=== PATIENT | female | born 1990 | race African-American/Black ===

== ENCOUNTER 2017-03-02 16:23 | Emergency (ER) | payer OTHER ==
--- NOTE | ~2017-03-02 | CT2 ---
[facility] A Service of [facility] RADIOLOGY TEXT RESULTS PATIENT: BROOKE MCGINNIS LOCATION: [facility] : 86 UNIT #: [id number] AGE: [address]: Jose Fernández MD SEX: F ORDER DR: [id number] [facility] [address] [place], [place] [address] [id number] E MR#: [id number] #: [id number] NAME: BROOKE MCGINNIS : 1990 SEX: F STUDY DATE/TIME: 03/02/2017 17:15 UNIT: [facility] ROOM: STUDY DESCRIPTION: CT Abd and Pelv W Cont Attending Physician: Yovany Fernández M.D. Ordering Physician: Selvin Price M.D. Primary Care Physician: Sundar Duran Aprn MEDICAL IMAGING REPORT This report is preliminary unless electronic signature is present EXAM CT abdomen and pelvis with contrast INDICATIONS Middle abdomen pain starting 6 weeks ago which comes and goes and is getting worse. COMPARISON 01/05/2016. TECHNIQUE Patient was given 100 mL of Isovue 370. Axial 5 mm images were obtained through the abdomen and pelvis with IV and oral contrast. This CT exam was performed with one or more of the following radiation dose reduction techniques: automatic control, adjustment of mA and/or kV according to patient size, and iterative reconstruction. FINDINGS There is a small cyst in the left lobe of the liver and another one in the right lobe of the liver, both measuring less than a cm in diameter. Liver is otherwise normal. The spleen, pancreas, adrenal glands and kidneys are normal. The aorta is normal in size. The appendix is normal. The bowel is normal. The uterus and adnexal regions are normal. The patient still has a defect about 2 cm above the umbilicus within the abdominal wall fascia but there is no inflammation associated with that area. There is still some fat herniating through. IMPRESSION 1. There is a small less than 1 cm opening through the abdominal fascia about 1 to 2 cm above the umbilicus. There is some fat herniating through this region but there is no evidence of incarceration or inflammation. On that study 01/05/2016 there was a smaller area of fat herniating through it that was inflamed. [facility]. [facility] A Service of [facility] & [facility] RADIOLOGY TEXT RESULTS PATIENT: BROOKE MCGINNIS [id number] [birth year] UNIT #: [id number] AGE: [address]: Jose Fernández MD SEX: F ORDER DR: 2. Small hepatic cyst. 3. Otherwise normal. Dictated by... Ethan Gillis M.D. THIS IS AN ELECTRONICALLY VERIFIED REPORT Ethan Gillis M.D. at 03/04/2017 7:13 AM GAIL/charley TD: 03/02/2017 21:49 JOB #: [id number] MEDICAL IMAGING REPORT Page 1 of 1 COPY
[2017-03-02 15:01] LABS: BASOPHIL# 0.1 X10e3 (0-0.3); BASOPHIL% 2.4 % (0-2.5); EOSINOPHIL% 0.9 % (0.0-7.0); HEMATOCRIT 33.4 % (35.0-45.0); HEMOGLOBIN 10.2 gm/dL (12.0-16.0); LYMPHOCYTE# 1.6 X10e3 (1.0-3.5); LYMPHOCYTE% 41.3 % (17.0-45.0); MEAN CELL VOLUME 76.2 FL (83-96); MEAN CORPUSCULAR HEMOGLOBIN 23.4 PG (28-34); MEAN CORPUSCULAR HGB CONC 30.7 g/dL (30-36); MEAN PLATELET VOLUME 8.9 FL (6.5-11.5); MONOCYTE# 0.3 X10e3 (0-1.0); MONOCYTE% 8.1 % (3.0-12.0); NEUTROPHIL# 1.8 X10e3 (1.5-7.1); NEUTROPHIL% 47.3 % (40-75); PLATELET COUNT 295 X10e3 (140-420); RED BLOOD COUNT 4.38 X10e (3.90-5.30); RED CELL DISTRIBUTION WIDTH 17.1 % (11.0-15.5); WHITE BLOOD COUNT 3.9 X10e3 (4.0-10.5)
[2017-03-02 15:06] LABS: DIFF IND NO
[2017-03-02 15:17] LABS: URINE SOURCE CLEAN CATCH
[2017-03-02 15:22] LABS: URINE APPEARANCE CLEAR; URINE BILIRUBIN NEG (NEG); URINE BLOOD NEG (NEG); URINE COLOR DK YELLOW; URINE GLUCOSE NEG (NEG); URINE KETONE TRACE (NEG); URINE LEUKOCYTE ESTERASE NEG (NEG); URINE NITRATE NEG (NEG); URINE PH 6.5 (5-8); URINE PROTEIN 1+ (NEG); URINE SPECIFIC GRAVITY 1.042 (1.003-1.035)
[2017-03-02 15:25] LABS: ALBUMIN SERUM 3.7 g/dL (3.5-5.0); ALKALINE PHOSPHATASE 58 U/L (32-92); ALT (SGPT) 12 U/L (10-40); AST (SGOT) 17 U/L (10-42); BLOOD UREA NITROGEN 8 mg/dL (9-23); BUN/CREATININE RATIO 11.42; CALCIUM SERUM 8.5 mg/dL (8.4-10.2); CARBON DIOXIDE 25 mmol/L (22-31); CHLORIDE 105 mmol/L (100-111); CREATININE SERUM 0.7 mg/dL (0.6-1.4); GLOM FILT RATE Estimated 136.7 mL/min (>60); GLUCOSE FASTING 96 mg/dL (70-110); LIPASE 23 U/L (22-51); POTASSIUM 3.3 mmol/L (3.5-5.1); PROTEIN TOTAL SERUM 7.7 g/dL (6.0-8.3); SODIUM 138 mmol/L (135-145)
[2017-03-02 15:25] LABS: URBCS1 AUWI 0-2 /[HPF] (0-2); URINE BACTERIA AUWI NEG (NEGATIVE); URINE SQUAMOUS EPITHELIAL CELL FEW /[HPF]
[2017-03-02 15:29] LABS: BILIRUBIN, DIRECT <0.1 mg/dL (0.0-0.2); BILIRUBIN,TOTAL <0.1 mg/dL (0.2-2.0)
[2017-03-02 15:46] LABS: CULTURE INDICATED? NO
[~2017-03-02 16:23] MED LIST: BENTYL20 MG PO; FIORINAL CAPSUL1 CAP PO; FLEXERIL PO; FLONASE16 GM; IBUPROFEN PO; IBUPROFEN800 MG; IBUPROFEN800 MG PO; K-DUR20 ME1 DOB; KETOPROFEN PO; MOTRIN400 MG PO; NAPROXEN PO; OMEPRAZOLE20 M2 PO; OMNICEF PO; PHENERGAN PO; PRENATAL MULITV1 TAB PO; SUDAFED PO; VICODIN 5/500 T1 TAB PO; ZANTAC PO; ZITHROMAX PO; ZOFRAN PO
== END 2017-03-02 18:15 | disposition home or self-care (01) ==
LOC: CED 16:23
DX: K43.9 Ventral hernia without obstruction or gangrene (principal)
CPT/HCPCS: 36415; 74177; 80048; 80076; 81003; 83690; 84703; 85025; 96374; 96375; 99284; J1885; J2405; Q9967